=== PATIENT | male | born 1995 | race Caucasian/White ===

== ENCOUNTER 2018-10-25 14:46 | Emergency (ER) | payer OTHER, SELFPAY ==
[2018-10-25 14:47] VITALS: BP 138/74; PULSE 90; RESP 20; TEMP 36.9; O2SAT 100; BMI 25.9
--- NOTE | 2018-10-25 15:26 | ED.DCSUM_ITS ---
- ER Visit Summary Date of Service: 10/25/18 Chief Complaint: Shortness of breath History of Present Illness: The patient is a 23 M with a history of allergies to peanuts. Approximately an hour ago patient ate a cookie and promptly vomited. He had some chest tightness and some mild shortness of breath. He later found out the cookie had peanut butter in it. He does note having an upset stomach overnight with some GI symptoms as well. Patient has had similar allergic reactions in the past and does not carry an EpiPen. He has not taken anything for his current symptoms. Physical Examination: Vital signs are unremarkable. His pulse ox is 100% on room air. Patient sitting upright in bed. He speaking full sentences and tolerating secretions well. He does have a full sound to his voice. Head and neck examination reveals posterior pharynx examination to be unremarkable. Trachea is midline. Heart is regular rate and rhythm. Lungs sounds are clear. Abdomen is soft and nontender. Skin examination was no rash or lesions. Test Results: [] Emergency Department Course and Treatment: Patient had a Hep-Lock placed and was given Benadryl, Pepcid, and Solu-Medrol. He was rechecked every 20 minutes was 3 after medications were given. Symptoms have continued to improve. On final repeat check he is resting with head of bed elevated approximately 45 degrees. He is a strong voice. His O2 sat is 96% on room air. Patient will be given prednisone for home. He will use Benadryl as needed. He is still complaining of some mild nausea will be given Zofran to use at home as needed. Treatment Plan: [] Disposition: Discharge Impression: Allergic reaction, improved This note was generated with [employer] dictation software. It may contain incorrect words, spelling, and punctuation that were not noted in review of the chart prior to signing ED Disposition - Plan for ED Patient: Chief Complaint: Shortness of Breath Referrals: Care Physician,No Primary [Primary Care Provider] -
[2018-10-25 15:32] VITALS: O2SAT 99
[2018-10-25] MEDS: MethylPREDNISolone 125 MG/2 ML Vial IV (15:39)
[2018-10-25] MEDS: DiphenhydrAMINE 50 MG/ML Syringe 25 MG IV (15:39)
[2018-10-25 16:07] VITALS: PULSE 86; RESP 15; O2SAT 98
--- NOTE | 2018-10-25 16:40 | ED.DEP ---
ED Disposition - Plan for ED Patient: Disposition: Home or Assisted Living Chief Complaint: Shortness of Breath Instructions: ED Allergic React Food Prescriptions: Ondansetron [Zofran Odt] 4 mg PO Q8H PRN PRN #10 tablet PRN Reason: Nausea predniSONE tablet 60 mg PO DAILY #15 tablet Referrals: Nelson Hernandez DO [STAFF PHYSICIAN] - As Needed
[2018-10-25 16:47] VITALS: BP 135/76; PULSE 62; RESP 16; O2SAT 97
== END 2018-10-25 16:50 | disposition home or self-care (01) ==
PROVIDERS: Emergency Provider Emergency Medicine
DX: T78.1XXA Other adverse food reactions, not elsewhere classified, initial encounter (principal); R11.2 Nausea with vomiting, unspecified; R07.89 Other chest pain; R06.02 Shortness of breath; X58.XXXA Exposure to other specified factors, initial encounter
CPT/HCPCS: 93005; 96374; 96375; 99283; A4216; J3490